=== PATIENT | male | born 1965 | race Caucasian/White ===

== ENCOUNTER 2022-09-19 00:41 | Day surgery (SDC) | payer BC, SELFPAY ==
[2022-09-07 11:23] VITALS: BMI 29.7
[2022-09-19 12:10] VITALS: BP 125/99; PULSE 60; RESP 18; TEMP 36.4; O2SAT 100; BMI 29.7
--- NOTE | 2022-09-19 12:24 | P.PNAN_ITS ---
Anes - Eval Pre Procedure Procedure: Operation Date: 09/19/22 13:30 Proposed Procedures p Screening Colonoscopy - Jeffy Brunson MD Date/Time: 09/19/22 12:24 Pre Op Diagnosis: neoplasm screening Patient Data Age: 56 Gender: M Height: 1.96 m Weight: 113.7 kg Last Vital Signs Temp 97.5 F L 09/19/22 12:10 Pulse 60 09/19/22 12:10 Resp 18 09/19/22 12:10 BP 125/99 H 09/19/22 12:10 Pulse Ox 100 09/19/22 12:10 O2 Del Method Room Air 09/19/22 12:10 Allergies Allergy/AdvReac Type Severity Reaction Status Date / Time Penicillins Allergy Unknown Unknown Verified 09/19/22 12:13 Patient hx anesthesia problems: none Family hx anesthesia problems: none Results Review: All pre-operative results and documents have been reviewed as part of the pre- operative evaluation. PMFSH Past Medical History Medical History Allergies Asthma Encounter for screening for malignant neoplasm of prostate EtOH dependence Fatigue Overweight (BMI 25.0-29.9) Screening for cholesterol level Screening for colon cancer Smoker Family History Family History (Updated 08/07/22 @ 14:52 by Gloria De Leon CMA) Father Malignant neoplasm of prostate Mother Hypertension Other Family history of malignant neoplasm Social History Social History (Updated 08/07/22 @ 14:46 by Gloria De Leon CMA) Smoking status: Current some day smoker Tobacco type: cigars Alcohol intake: current Drinks per week: 20 Substance use: never Substance use type: does not use Lack of Transportation: No Lack of Food: Never True Current Housing: I Have Housing Concerned About Future Housing: No Difficulty Paying Gas/Electric Bills: No Difficulty Paying for Meds: No Currently Unemployed: No Difficulty w/ Childcare or Family Care: No Living arrangements: other Additional living arrangements comments: With Occupation/Education: occupation 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
[2022-09-19] MEDS: LACTATED RINGERS 1,000 ML 150 ML IV CONT (12:26)
--- NOTE | 2022-09-19 12:47 | WPDANESEPPF ---
Anes - Initial Pre Proc Eval Procedure: Operation Date: 09/19/22 13:30 Proposed Procedures p Screening Colonoscopy - Jeffy Brunson MD Date/Time: 09/19/22 12:47 Surgeon: Jeffy Brunson MD Pre Op Diagnosis: neoplasm screening Patient Data Age: 56 Gender: M Height: 1.96 m Weight: 113.7 kg Last Vital Signs Temp 97.5 F L 09/19/22 12:10 Pulse 60 09/19/22 12:10 Resp 18 09/19/22 12:10 BP 125/99 H 09/19/22 12:10 Pulse Ox 100 09/19/22 12:10 O2 Del Method Room Air 09/19/22 12:10 Allergies Allergy/AdvReac Type Severity Reaction Status Date / Time Penicillins Allergy Unknown Unknown Verified 09/19/22 12:13 Patient hx anesthesia problems: none Family hx anesthesia problems: none Results Review: All pre-operative results and documents have been reviewed as part of the pre-operative evaluation. PMFSH Past Medical History Medical History Allergies Asthma Encounter for screening for malignant neoplasm of prostate EtOH dependence Fatigue Overweight (BMI 25.0-29.9) Screening for cholesterol level Screening for colon cancer Smoker Family History Family History (Updated 08/07/22 @ 14:52 by Gloria De Leon CMA) Father Malignant neoplasm of prostate Mother Hypertension Other Family history of malignant neoplasm Social History Social History (Updated 08/07/22 @ 14:46 by Gloria De Leon [facility]) Smoking status: Current some day smoker Tobacco type: cigars Alcohol intake: current Drinks per week: 20 Substance use: never Substance use type: does not use Lack of Transportation: No Lack of Food: Never True Current Housing: I Have Housing Concerned About Future Housing: No Difficulty Paying Gas/Electric Bills: No Difficulty Paying for Meds: No Currently Unemployed: No Difficulty w/ Childcare or Family Care: No Living arrangements: other Additional living arrangements comments: With Occupation/Education: occupation 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 Informed Consent: The patient's anesthetic plan and its attendant risks and benefits were discussed with the patient/family/POA. Questions were solicited and answers provided to the satisfaction of the patient/family/POA.
--- NOTE | 2022-09-19 12:58 | P.HP_ITS ---
History of Present Illness History of Present Illness Consent: Risks, benefits, and alternatives have been discussed and questions answered. Patient agrees to proceed with procedure. Chief complaint: neoplasm screening Narrative: Calderon Lomeli is a 56 year old male Presents for screening colonoscopy. Patient's current weight appetite and bowel movements are normal. Patient denies abdominal pain. He has had bleeding. Family history is noncontributory. Review of Systems Review of Systems: Review of systems noncontributory. [facility] Past Medical History Medical History Allergies Asthma Encounter for screening for malignant neoplasm of prostate EtOH dependence Fatigue Overweight (BMI 25.0-29.9) Screening for cholesterol level Screening for colon cancer Smoker Family History Family History (Updated 08/07/22 @ 14:52 by Gloria De Leon [facility]) Father Malignant neoplasm of prostate Mother Hypertension Other Family history of malignant neoplasm Social History Social History (Updated 08/07/22 @ 14:46 by Gloria De Leon [facility]) Smoking status: Current some day smoker Tobacco type: cigars Alcohol intake: current Drinks per week: 20 Substance use: never Substance use type: does not use Lack of Transportation: No Lack of Food: Never True Current Housing: I Have Housing Concerned About Future Housing: No Difficulty Paying Gas/Electric Bills: No Difficulty Paying for Meds: No Currently Unemployed: No Difficulty w/ Childcare or Family Care: No Living arrangements: other Additional living arrangements comments: With Occupation/Education: occupation 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 Vital signs stable. HEENT exam is unremarkable. Patient is anicteric. Lungs are clear to auscultation and percussion. Heart is without murmur or extra sounds. Abdomen bowel sounds are present soft nontender with no organomegaly. Digital external rectal exam is normal. Assessment and Plan Assessment and plan (1) Screening for colon cancer: Code(s): Z12.11 - Encounter for screening for malignant neoplasm of colon Status: Acute Assessment and Plan: Patient presents for screening colonoscopy. Patient appears to be at average risk for colon polyps. Further recommendations may be given after endoscopy.
[2022-09-19 13:23] VITALS: BP 105/71; PULSE 65; RESP 24; O2SAT 100
[2022-09-19 13:33] VITALS: BP 103/69; PULSE 64; RESP 17; O2SAT 100
[2022-09-19 13:42] VITALS: BP 122/75; PULSE 66; RESP 16; O2SAT 100
== END 2022-09-19 13:47 | disposition home or self-care (01) ==
PROVIDERS: PCP Family Medicine; Visit Provider Internal Medicine Gastroenterology
PROC: 0DJD8ZZ Inspection of Lower Intestinal Tract, Via Natural or Artificial Opening Endoscopic (ICD-10-PCS; CPT 45378; principal; 2022-09-19 13:30)
DX: Z12.11 Encounter for screening for malignant neoplasm of colon (principal); K64.8 Other hemorrhoids; F17.290 Nicotine dependence, other tobacco product, uncomplicated
CPT/HCPCS: 45378; J2704; J7120